=== PATIENT | male | born 1965 | race African-American/Black ===

== ENCOUNTER 2017-03-15 22:44 | Emergency (ER) | payer SELFPAY ==
[~2017-03-15] VITALS: Ht 175.3 cm; Wt 106.0 kg
[2017-03-16] MEDS ORDERED: IBUPROFEN 600MG TABLET PO ONE (02:15)
[2017-03-16 03:30] VITALS: BP 122/75
== END 2017-03-16 06:30 | disposition home or self-care (01) ==
LOC: ER 22:44
DX: S16.1XXA Strain of muscle, fascia and tendon at neck level, initial encounter (principal); S66.912A Strain of unspecified muscle, fascia and tendon at wrist and hand level, left hand, initial encounter; S43.402A Unspecified sprain of left shoulder joint, initial encounter; V49.40XA Driver injured in collision with unspecified motor vehicles in traffic accident, initial encounter; Y93.89 Activity, other specified; Y92.89 Other specified places as the place of occurrence of the external cause; Y99.8 Other external cause status
CPT/HCPCS: 72040; 73030; 73130; 99284